=== PATIENT | female | born 1990 | race Caucasian/White ===

== ENCOUNTER 2016-06-07 13:12 | Emergency (ER) | payer OTHER ==
[2016-06-07 13:27] VITALS: BP 129/85; PULSE 79; RESP 18; TEMP 98.2; O2SAT 95
--- NOTE | 2016-06-07 13:28 | EDPHY ---
H & P Time Seen by Provider: 06/07/16 13:22 HPI/ROS: CHIEF COMPLAINT: Flu HISTORY OF PRESENT ILLNESS: Patient is a 25-year-old female who comes to the emergency department complaining of body aches, foggy head, and runny nose. She denies sore throat or difficulty breathing. She has had occasional coughing. All the symptoms began around 9:00 a.m. this morning. She is concerned that she may have gotten the flu and is requesting Tamiflu. She did get the flu vaccine this year. She does not have a fever. REVIEW OF SYSTEMS: Constitutional: See HPI EENTM: See HPI Respiratory: denies: cough, shortness of breath Cardiac: denies: chest pain, irregular heart rate, lightheadedness, palpitations Gastrointestinal/Abdominal: denies: abdominal pain, diarrhea, nausea, vomiting, blood streaked stools Genitourinary: denies: dysuria, frequency, hematuria, pain Musculoskeletal: denies: joint pain, muscle pain Skin: denies: lesions, rash, jaundice, bruising Neurological: denies: headache, numbness, paresthesia, tingling, dizziness, weakness Hematologic/Lymphatic: denies: blood clots, easy bleeding, easy bruising Immunologic/allergic: denies: HIV/AIDS, transplant EXAM: GENERAL: fatigued, well-nourished and in no acute distress. HEAD: Atraumatic, normocephalic. EYES: Pupils equal round and reactive to light, extraocular movements intact, sclera anicteric, conjunctiva are normal. ENT: Rhinorrhea, TMs normal, nares patent, oropharynx clear without exudates. Moist mucous membranes. NECK: Normal range of motion, supple without lymphadenopathy or JVD. LUNGS: Breath sounds clear to auscultation bilaterally and equal. No wheezes rales or rhonchi. HEART: Regular rate and rhythm without murmurs, rubs or gallops. ABDOMEN: Soft, nontender, normoactive bowel sounds. No guarding, no rebound. No masses appreciated. BACK: No CVA tenderness, no spinal tenderness, step-offs or deformities EXTREMITIES: Normal range of motion, no pitting or edema. No clubbing or cyanosis. NEUROLOGICAL: Cranial nerves II through XII grossly intact. Normal speech, normal gait. 5/5 strength, normal movement in all extremities, normal sensation PSYCH: Normal mood, normal affect. SKIN: Warm, dry, normal turgor, no visible rashes or lesions. Source: Patient Exam Limitations: No limitations - Medical/Surgical History Hx Asthma: No Hx Chronic Respiratory Disease: No Hx Diabetes: No Hx Cardiac Disease: No Hx Renal Disease: No Hx Cirrhosis: No - Family History Significant Family History: No pertinent family hx - Social History Smoking Status: Current some day smoker Alcohol Use: None Drug Use: None Constitutional: Initial Vital Signs Temperature (C) 36.8 C 06/07/16 13:25 Heart Rate 79 06/07/16 13:25 Respiratory Rate 18 06/07/16 13:25 Blood Pressure 129/85 H 06/07/16 13:25 O2 Sat (%) 95 06/07/16 13:25 O2 Delivery Mode Room Air Allergies/Adverse Reactions: No Known Allergies Allergy (Unverified 06/07/16 13:25) Home Medications: Medication Instructions Recorded Control Pill 06/07/16 Oseltamivir Phosphate [Tamiflu 75 75 mg PO BID #10 cap 06/07/16 mg (*)] Medical Decision Making ED Course/Re-evaluation: 1:50 p.m. the patient's flu swab is negative. She continues to request Tamiflu however because her co-worker tested positive for the flu. She may be too early or may have gotten a bland swab. Will prescribe her Tamiflu as she requests. Differential Diagnosis: Partial list of the Differential diagnosis considered include but were not limited to; influenza, viral syndrome, upper respiratory tract infection and although unlikely based on the history and physical exam, I also considered bronchitis, pneumonia, meningitis, sepsis. I discussed these differential diagnoses and the plan with the patient as well as the usual and expected course. The patient understands that the diagnosis is provisional and that in medicine we are not always correct and that further workup is often warranted. Usual and customary warnings were given. All of the patient's questions were answered. The patient was instructed to return to the emergency department should the symptoms at all worsen or return, otherwise to followup with the physician as we discussed. - Data Points Laboratory Results: 06/07/16 13:25 Influenza Typ A,B (DFA) NEGATIVE FOR FLU (NEGATIVE) Departure - Departure Disposition: Home, Routine, Self-Care Clinical Impression: Viral syndrome Condition: Fair Instructions: Viral Syndrome (ED) Referrals: Shant Del Rio MD [Medical Doctor] - As per Instructions Prescriptions: Oseltamivir Phosphate [Tamiflu 75 mg (*)] 75 mg PO BID #10 cap
== END 2016-06-07 14:07 | disposition home or self-care (01) ==
LOC: CED 13:12
DX: B34.9 Viral infection, unspecified (principal); F17.200 Nicotine dependence, unspecified, uncomplicated
CPT/HCPCS: 87400-PO; G0463-PO